=== PATIENT | male | born 1950 | race Caucasian/White ===

== ENCOUNTER 2017-10-06 06:22 | Inpatient (IN) | payer MEDICARE ==
[~2017-10-06] VITALS: Ht 190.5 cm; Wt 158.0 kg
[2017-10-06] VITALS (15 sets, daily range): BP systolic 143–184; BP diastolic 71–104; PULSE 70–91; RESP 20–21; TEMP 99; O2SAT 93–100
[~2017-10-06 06:22] MED LIST: D 50CAP2 PO; LUPR7.5I2 IM; WARF-22 PO
[2017-10-06] MEDS ORDERED: PROTAMINE SULFATE 50 MG/5 ML VIAL ONE ×2 (06:38→08:49)
[2017-10-06] MEDS ORDERED: VANCOMYCIN HCL 1000 MG VIAL ONE (06:38)
[2017-10-06] MEDS ORDERED: HEPARIN SODIUM - IV 10,000 UNITS/10 ML VIAL ONE ×2 (06:38→08:49)
[2017-10-06] MEDS ORDERED: HEPARIN-NS/PF INJ 500 ML ONE (06:39)
[2017-10-06] MEDS ORDERED: THROMBIN (TOPICAL) 20,000 UNIT SPRAY KIT ONE (06:39)
--- NOTE | 2017-10-06 07:15 | HHI.HP ---
History of Present Illness Chief Complaint: AAA History of Present Illness 66 yo male with asymptomatic AAA, presents for elective repair. In usual state of health - no new symptoms that would preclude surgery. Past/Family/Social History Past Medical History HTN OA prostate CA AAA Past Surgical History IVCF ankle surgery tonsillectomy Social History former smoker Family History NC Home Medications Reported Medications Leuprolide (Monthly) Inj Kit (Lupron Depot Inj Kit) 7.5 Mg Kit, 7.5 MG IM Q28D, KIT 0 Refills 10/05/17 Cholecalciferol (D3 Maximum Strength) 5,000 Unit Cap, 5000 UNITS PO DAILY for Nutritional Supplement, #30 CAP 0 Refills 10/05/17 Warfarin (Warfarin) 10 Mg Tab, 10 MG PO DAILY for Blood Clot Prevention, #30 TAB 0 Refills 10/05/17 Coded Allergies: penicillin G (Verified Allergy, Severe, 10/05/17) Review of Systems Constitutional: DENIES: Diaphoretic episodes, Fatigue, Fever, Weight gain, Weight loss, Chills, Dizziness, Change in appetite, Night Sweats Cardiovascular: DENIES: Chest pain, Palpitations, Syncope, Dyspnea on Exertion , PND, Lower Extremity Edema, Orthopnea, Claudication Physical Exam Neuro: alert, oriented, no distress HEENT: NC/AT Neck: no JVD Heart: reg rate, no M Lungs: clear B Abdomen: obese, NT Extremities: no groin rashes pending CTA (FRANKS) reviewed Caprini VTE Risk Assessment Caprini VTE Risk Assessment: No/Low Risk (score <= 1) Caprini Risk Assessment Model Point Value = 1 Point Value = 2 Point Value = 3 Point Value = 5 Age 41-60 Minor surgery BMI > 25 kg/m2 Swollen legs Varicose veins or History of unexplained or recurrent spontaneous Oral contraceptives or hormone replacement Sepsis (< 1 month) Serious lung disease, including pneumonia (< 1 month) Abnormal pulmonary function Acute myocardial infarction Congestive heart failure (< 1 month) History of inflammatory bowel disease Medical patient at bed rest Age 61-74 Arthroscopic surgery Major open surgery (> 45 min) Laparoscopic surgery (> 45 min) Malignancy Confined to bed (> 72 hours) Immobilizing plaster cast Central venous access Age >= 75 History of VTE Family history of VTE Factor V Leiden Prothrombin [id number] Lupus anticoagulant Anticardiolipin antibodies Elevated serum homocysteine Heparin-induced thrombocytopenia Other congenital or acquired thrombophilia Stroke (< 1 month) Elective arthroplasty Hip, pelvis, or leg fracture Acute spinal cord injury (< 1 month) Prophylaxis Regimen Total Risk Factor Score Risk Level Prophylaxis Regimen 0-1 Low Early ambulation 2 Moderate Order ONE of the following: *Sequential Compression Device (SCD) *Heparin 5000 units SQ BID 3-4 Higher Order ONE of the following medications: *Heparin 5000 units SQ TID *Enoxaparin/Lovenox 40 mg SQ daily (WT < 150 kg, CrCl > 30 mL/min) *Enoxaparin/Lovenox 30 mg SQ daily (WT < 150 kg, CrCl > 10-29 mL/min) *Enoxaparin/Lovenox 30 mg SQ BID (WT < 150 kg, CrCl > 30 mL/min) AND/OR *Sequential Compression Device (SCD) 5 or more Highest Order ONE of the following medications: *Heparin 5000 units SQ TID (Preferred with Epidurals) *Enoxaparin/Lovenox 40 mg SQ daily (WT < 150 kg, CrCl > 30 mL/min) *Enoxaparin/Lovenox 30 mg SQ daily (WT < 150 kg, CrCl > 10-29 mL/min) *Enoxaparin/Lovenox 30 mg SQ BID (WT < 150 kg, CrCl > 30 mL/min) AND *Sequential Compression Device (SCD) Assessment and Plan Plan To OR for elective EVAR Discussed with patient and . Discharge Planning PACU then CPCU Anticipate d/c tomorrow (POD#1) : [phone] Pedro Jorge MD Oct 06, 2017 07:15
[2017-10-06] MEDS ORDERED: SODIUM CHLORID 0.9% 500 ML IV PRN (07:45)
[2017-10-06] MEDS ORDERED: POVIDONE IODINE 5% (ANTISEPSIS KIT) 4 APPLICATIONS EACH NARE PRN (07:45)
[2017-10-06] MEDS ORDERED: METOPROLOL TARTRATE 25 MG TAB PO PRN (07:45)
[2017-10-06] MEDS ORDERED: CHLORHEXIDINE GLUCONATE 2 % 1 PACK (2 CLOTHS) TOPICAL PRN (07:45)
[2017-10-06] MEDS ORDERED: LACTATED RINGER'S 1000 ML IV PRN (07:45)
[2017-10-06 07:48] LABS: AUTOMATED NEUTROPHIL # 5.4 TH/MM3 (1.8-7.7); BASOPHIL # 0.1 TH/MM3 (0-0.2); BASOPHIL % 1.3 % (0.0-2.0); EOSINOPHIL # 0.3 TH/MM3 (0-0.4); EOSINOPHIL % 3.7 % (0.0-4.0); HEMATOCRIT 44.4 % (39.0-51.0); HEMOGLOBIN 14.9 GM/DL (13.0-17.0); LYMPH % 21.1 % (9.0-44.0); LYMPHOCYTE # 1.8 TH/MM3 (1.0-4.8); MEAN CELL VOLUME 87.8 FL (80.0-100.0); MEAN CORPUSCULAR HEMOGLOBIN 29.6 PG (27.0-34.0); MEAN CORPUSCULAR HGB CONC 33.7 % (32.0-36.0); MEAN PLATELET VOLUME 8.4 FL (7.0-11.0); MONO % 9.9 % (0.0-8.0); MONOCYTE # 0.8 TH/MM3 (0-0.9); PLATELET COUNT 197 TH/MM3 (150-450); RED BLOOD COUNT 5.06 MIL/MM3 (4.50-5.90); RED CELL DISTRIBUTION WIDTH 14.9 % (11.6-17.2); WHITE BLOOD COUNT 8.4 TH/MM3 (4.0-11.0)
[2017-10-06 08:00] LABS: INTERNATIONAL NORMALIZED RATIO 1.1 RATIO; PROTHROMBIN TIME - PATIENT 11.3 SEC (9.8-11.6)
[2017-10-06 08:12] LABS: BICARBONATE 24.3 MEQ/L (21.0-32.0); CALCIUM 8.5 MG/DL (8.5-10.1); CREATININE 0.85 MG/DL (0.60-1.30)
[2017-10-06] MEDS ORDERED: IOHEXOL 300 INJ 50 ML IV ONE (08:58)
--- NOTE | 2017-10-06 10:16 | HHI.PR ---
cc: Pedro Jorge MD Immediate Post Op Note Procedure Date: Oct 06, 2017 Pre Op Diagnosis: AAA Post Op Diagnosis: AAA Surgeon: Pedro Jorge Mechanical Oxidizer(s): none Procedure: 1. EVAR 2. B AUTO BODY WORKER Perclose Findings: successful EVAR, no endoleak at completion Additional Information: + Doppler signals in feet at end of case Complications: none Specimen(s) removed: none Estimated blood loss: 100mL Anesthesia: General Drains: None Fluids: 2100mL Urinary Output (mLs): 300 Patient to: PACU Patient Condition: Good Implant/Devices: SEE IMPLANT LOG (if applicable) Date/Time of Procedure: SEE SURGICAL CARE RECORD Pedro Jorge MD Oct 06, 2017 10:16
[2017-10-06] MEDS ORDERED: LACTULOSE SYRUP 20 GM/30 ML CUP PO PRN (10:30)
[2017-10-06] MEDS ORDERED: BISACODYL 10 MG SUPP RECTAL PRN (10:30)
[2017-10-06] MEDS ORDERED: SENNOSIDES 8.6 MG TAB PO PRN (10:30)
[2017-10-06] MEDS ORDERED: MAGNESIUM HYDROXIDE SUSP 30 ML CUP PO PRN (10:30)
[2017-10-06] MEDS ORDERED: *morphine SULFATE 4 MG/ML PERIprocedure ONLY ONE ×2 (10:42→10:45)
[2017-10-06] MEDS ORDERED: MIDAZOLAM HCL 2 MG/2 ML VIAL ONE (10:43)
[2017-10-06] MEDS ORDERED: PHENYLEPHRINE HCL 10 MG/ML VIAL IV ONE (11:59)
[2017-10-06] MEDS ORDERED: ONDANSETRON HCL 4 MG/2 ML VIAL IV PUSH ONE (11:59)
[2017-10-06] MEDS ORDERED: ROCURONIUM INJ 50 MG/5 ML SYRINGE IV PUSH ONE (11:59)
[2017-10-06] MEDS ORDERED: SODIUM CHLOR 0.9% 250 ML INJ 250 ML IV ONE (11:59)
[2017-10-06] MEDS ORDERED: NEOSTIGMINE 5 MG/5 ML SYRINGE IV PUSH ONE (11:59)
[2017-10-06] MEDS ORDERED: PHENYLEPH/NS 1000 MCG/10 ML SYR IV ONE (11:59)
[2017-10-06] MEDS ORDERED: SODIUM CHLORIDE 0.9% 10 ML VIAL IV ONE (11:59)
[2017-10-06] MEDS ORDERED: PROPOFOL 200 MG/20 ML AMP IV ONE (11:59)
[2017-10-06] MEDS ORDERED: ESMOLOL HCL 100 MG/10 ML VIAL IV ONE (11:59)
[2017-10-06] MEDS ORDERED: GLYCOPYRROLATE 1 MG/5 ML SYRINGE IV PUSH ONE (11:59)
[2017-10-06] MEDS ORDERED: SODIUM CHLORID 0.9% 500 ML INJ 500 ML IV ONE (11:59)
[2017-10-06] MEDS ORDERED: LIDOCAINE HCL 1% PF 5 ML SYRINGE OTHER ONE (11:59)
[2017-10-06] MEDS ORDERED: NORMOSOL R INJ 1,000 ML IV ONE (11:59)
[2017-10-06] MEDS: HYDROmorphone HCL 2 MG TAB PO PRN ×2 (13:53→19:06)
--- NOTE | 2017-10-06 17:42 | EKG ---
Date Performed: 10/06/2017 Time Performed: 07:19:12 PTAGE: 66 years EKG: Sinus rhythm WITH OCCASIONAL VENTRICULAR PREMATURE COMPLEXES WITH FREQUENT SUPRAVENTRICULAR PREMATURE COMPLEXES I N A BIGEMINAL PATTERN MARKED LEFT AXIS DEVIATION POSSIBLE INFERIOR MYOCARDIAL INFARCTION , OF INDETER MINATE AGE WITH POSTERIOR EXTENSION ABNORMAL ECG NO PREVIOUS TRACING DOCTOR: Palmira Lucio Interpretating Date/Time 10/06/2017 17:40:44
[2017-10-06] MEDS: DOCUSATE SODIUM 50 MG/SENNA 8.6 MG TAB PO SCH (20:14)
[2017-10-06] MEDS: FAMOTIDINE 20 MG TAB PO SCH (20:14)
[2017-10-06] MEDS: hydrALAZINE HCL 25 MG TAB PO PRN (20:14)
[2017-10-06] MEDS ORDERED: ATORVASTATIN 40 MG TAB PO SCH (21:00)
[2017-10-07] VITALS (12 sets, daily range): BP systolic 148–199; BP diastolic 78–95; PULSE 81–108; RESP 20–22; TEMP 98.6–100; O2SAT 93–97
[2017-10-07] MEDS: hydrALAZINE HCL 25 MG TAB PO PRN ×2 (04:34→09:43)
[2017-10-07 04:42] LABS: HEMATOCRIT 42.8 % (39.0-51.0); HEMOGLOBIN 14.2 GM/DL (13.0-17.0); MEAN CORPUSCULAR HEMOGLOBIN 29.2 PG (27.0-34.0); MEAN CORPUSCULAR HGB CONC 33.2 % (32.0-36.0); MEAN PLATELET VOLUME 8.9 FL (7.0-11.0); PLATELET COUNT 160 TH/MM3 (150-450); RED BLOOD COUNT 4.86 MIL/MM3 (4.50-5.90); RED CELL DISTRIBUTION WIDTH 15.2 % (11.6-17.2); WHITE BLOOD COUNT 13.2 TH/MM3 (4.0-11.0)
[2017-10-07 05:08] LABS: BICARBONATE 25.3 MEQ/L (21.0-32.0); CALCIUM 8.1 MG/DL (8.5-10.1); CREATININE 0.71 MG/DL (0.60-1.30)
--- NOTE | 2017-10-07 06:26 | MP ---
cc: Pedro Jorge MD DATE OF OPERATION: 10/06/2017 PREOPERATIVE DIAGNOSIS: Abdominal aortic aneurysm. POSTOPERATIVE DIAGNOSIS: Abdominal aortic aneurysm. PROCEDURES: 1. Endovascular exclusion of abdominal aortic aneurysm using a bifurcated device. 2. Right common femoral artery Perclose for a 16-Andorran sheath. 3. Left common femoral artery Perclose for a 22-Andorran sheath. ATTENDING SURGEON: Pedro Jorge MD MOTOR VEHICLE SALESPERSON SURGEON: None. ANESTHESIA: General. INDICATIONS: Mr. Barney is a 66-year-old gentleman with a 5.5 cm abdominal aortic aneurysm that appears amenable to endovascular repair. He is taken to the operating room for elective repair. DESCRIPTION OF PROCEDURE: Informed consent was obtained from the patient. He was taken to the operating room and placed supine on the operating room table. An appropriate timeout was taken to ensure the patient's identity, operative site, and planned procedure. The administration of 1 g vancomycin was initiated prior skin incision and will be discontinued after single preoperative dose. Vancomycin was chosen because of the patient's PENICILLIN ALLERGY. Everyone in the room agreed with the timeout and we proceeded. He was prepped from his nipples to his knees. A 21-gauge micropuncture needle was used to access both common femoral arteries. This was exchanged using Seldinger technique for a micropuncture sheath through which 0.035 Storq wires were introduced. The micropuncture sheath was exchanged for a 5-Andorran sheath. These were used to dilate the skin and subcutaneous tract and arteriotomy, and then 2 Perclose ProGlide sutures were inserted into each common femoral artery and not tied down but will be used later. Two 8-Andorran 25 cm sheaths were then introduced. At this point, the patient was systemically heparinized with 15,000 units of intravenous heparin. The ACT was confirmed to be greater than 250. Through the left-hand side, the Storq wire was advanced to the proximal descending thoracic aorta and exchanged for a Lunderquist wire, and over the right-hand side, the Storq was exchanged for a marker flush straight catheter. The 8-Andorran sheath on the left was removed and Rose dilators used to dilate the skin and subcutaneous tract and arteriotomy until the main device, which was a Cook Zenith 3.0 x 96 which went through a 22-Andorran sheath, was introduced in the left-hand side. It was oriented appropriately. An angiogram was performed to locate the renal arteries, and the main device was deployed down to the contralateral gate. Interval angiography was performed to locate the renal arteries, and the top cap was deployed without difficulty. A Roadrunner guidewire was then placed through the right marker flush catheter, and this was exchanged for a Cobra and we attempted to access the contralateral gate using the Roadrunner and Cobra, but this was unsuccessful, and ultimately a Glidewire was used to navigate into the contralateral gate and this was confirmed angiographically. A Lunderquist wire was placed. A marker flush catheter was then advanced over the Lunderquist wire. An angiogram was performed which located the right hypogastric artery. The right limb was then introduced after the 8-Andorran sheath was removed, and Rose dilator was used to dilate the skin, subcutaneous tract and arteriotomy, and ultimately a 16-Andorran sheath was introduced. The right limb was deployed down until the distal aspect of the limb was immediately proximal to the hypogastric artery; it was deployed without difficulty. The delivery system except for the 16-Andorran sheath was removed. The remainder of the main device was deployed. The top cap was recaptured and a flush marker catheter was placed on the left hand side and the angiogram was performed to locate the left hypogastric artery. The ipsilateral limb was then inserted and deployed until the distal aspect of the limb was immediately proximal to the hypogastric artery. The Coda balloon was used to balloon the proximal and distal ends as well as all junctions, and a completion angiogram showed excellent result without any type 1 or type 3 endoleak. The wire, catheter and sheath were removed and the Perclose were tied down over Storq wires. The Storq wires were removed. Hemostasis was achieved in the groins and there were good Doppler signals in the feet. ____ 4-0 Monocryls were then used to repair the skin puncture sites. The patient was extubated and transported to the recovery room in stable condition. I was present and scrubbed and performed the entire procedure. MD CAROLYN Dao/RICHARD , 05:03 AM , 06:24 AM
--- NOTE | 2017-10-07 07:40 | PD.VS.PN ---
Subjective POD #: 1 Procedure(s): EVAR Subjective/Hospital Course Looks good, sitting in chair, no new discomfort parveen po Objective Vitals/I&O Date Time Temp Pulse Resp B/P (MAP) Pulse Ox O2 Delivery O2 Flow Rate FiO2 10/07/17 06:20 99 10/07/17 05:02 97 10/07/17 04:47 94 10/07/17 04:46 100.0 85 189/89 (122) 97 10/07/17 03:41 86 10/07/17 02:38 95 10/07/17 01:05 97 Nasal Cannula 3.00 Bi-Pap 10/07/17 01:02 98.8 91 199/95 (129) 96 10/07/17 01:02 81 10/06/17 23:00 91 10/06/17 22:23 84 10/06/17 20:34 100 30 10/06/17 20:30 80 10/06/17 20:13 12 10/06/17 19:00 97 Nasal Cannula 3.00 Bi-Pap 10/06/17 19:00 99.0 84 184/104 (130) 97 10/06/17 19:00 84 10/06/17 18:24 99 30 10/06/17 18:17 19 10/06/17 18:00 80 10/06/17 17:00 85 10/06/17 16:00 78 10/06/17 15:00 78 10/06/17 15:00 79 20 143/71 (95) 98 10/06/17 14:00 90 10/06/17 13:13 89 168/99 (122) 97 10/06/17 13:00 78 10/06/17 12:00 83 10/06/17 11:29 70 10/06/17 11:29 72 21 151/74 (99) 93 10/06/17 11:15 83 16 163/74 (103) 92 Nasal Cannula 4 10/06/17 11:00 83 16 156/80 (105) 92 Nasal Cannula 4 10/06/17 10:45 83 16 153/71 (98) 92 Nasal Cannula 4 10/06/17 10:34 97.7 86 16 163/74 (103) 91 Nasal Cannula 4 10/06/17 07:53 98.2 79 16 94 10/07/17 10/07/17 10/07/17 07:00 15:00 23:00 Intake Total 360 ml Output Total 1100 ml Balance -740 ml Exam: B groins soft, no ecchymoses feet warm and motor intact Laboratory Laboratory Tests Test 10/07/17 04:02 10/07/17 04:08 White Blood Count 13.2 Red Blood Count 4.86 Hemoglobin 14.2 Hematocrit 42.8 Mean Corpuscular Volume 88.0 Mean Corpuscular Hemoglobin 29.2 Mean Corpuscular Hemoglobin Concent 33.2 Red Cell Distribution Width 15.2 Platelet Count 160 Mean Platelet Volume 8.9 Blood Urea Nitrogen 13 Creatinine 0.71 Random Glucose 122 Calcium Level 8.1 Sodium Level 138 Potassium Level 3.9 Chloride Level 105 Carbon Dioxide Level 25.3 Anion Gap 8 Estimat Glomerular Filtration Rate 110 Assessment and Plan Plan POD#1 s/p Percutaneous EVAR Looks good, parveen po and voided since Freed out 1. D/C today 2. Lovenox to coumadin 3. f/u 1m with CTA A/P Discharge Planning d/c today : [phone] Pedro Jorge MD Oct 07, 2017 07:40
[2017-10-07] MEDS ORDERED: OXYC1CAP PO (08:28)
[2017-10-07] MEDS ORDERED: ENOX150P SQ (08:37)
--- NOTE | 2017-10-07 08:41 | PD.VS.DC ---
Discharge Summary Admission Date: Oct 06, 2017 at 06:22 Discharge Date: Oct 07, 2017 Admission Diagnosis: (1) AAA (abdominal aortic aneurysm) without rupture Discharge Diagnosis: (1) History of repair of aneurysm of abdominal aorta using endovascular stent graft ICD Codes: Z95.828 - Presence of other vascular implants and grafts (2) AAA (abdominal aortic aneurysm) without rupture ICD Codes: I71.4 - Abdominal aortic aneurysm, without rupture Brief History from admission 66 yo male with asymptomatic AAA, presents for elective repair. In usual state of health - no new symptoms that would preclude surgery. Procedure(s): EVAR Significant Findings B groins soft, no ecchymoses feet warm and motor intact Lungs clear RRR Laboratory Tests Test 10/06/17 07:35 10/07/17 04:02 10/07/17 04:08 Monocytes (%) (Auto) 9.9 % (0.0-8.0) Random Glucose 110 MG/DL (74-106) 122 MG/DL (74-106) White Blood Count 13.2 TH/MM3 (4.0-11.0) Calcium Level 8.1 MG/DL (8.5-10.1) Hospital Course: 66 yo male with asymptomatic AAA, presents for elective repair. Pt s/p EVAR POD #: 1 Looks great, told po pain controlled has already ambulated Groins soft Pt w/o abdominal/back pain Pt clear for d/c Arranged out pt f/u Checked E- [place]- Prescribed 3 day supply of post operative pain medication Allergies Coded Allergies Type Severity Reaction Last Updated Verified penicillin G Allergy Severe 10/06/17 Yes 10/05/17 10/05/17 10/06/17 10/06/17 10/07/17 10/07/17 06:00 18:00 06:00 18:00 06:00 18:00 Intake Total 2340 ml 360 ml Output Total 1650 ml 1100 ml Balance 690 ml -740 ml Intake Oral 240 ml 360 ml Other 2100 ml Output Urine Total 1550 ml 1100 ml Estimated Blood Loss 100 ml Laboratory Tests Test 10/06/17 07:35 10/07/17 04:02 10/07/17 04:08 White Blood Count 8.4 TH/MM3 13.2 TH/MM3 Red Blood Count 5.06 MIL/MM3 4.86 MIL/MM3 Hemoglobin 14.9 GM/DL 14.2 GM/DL Hematocrit 44.4 % 42.8 % Mean Corpuscular Volume 87.8 FL 88.0 FL Mean Corpuscular Hemoglobin 29.6 PG 29.2 PG Mean Corpuscular Hemoglobin Concent 33.7 % 33.2 % Red Cell Distribution Width 14.9 % 15.2 % Platelet Count 197 TH/MM3 160 TH/MM3 Mean Platelet Volume 8.4 FL 8.9 FL Neutrophils (%) (Auto) 64.0 % Lymphocytes (%) (Auto) 21.1 % Monocytes (%) (Auto) 9.9 % Eosinophils (%) (Auto) 3.7 % Basophils (%) (Auto) 1.3 % Neutrophils # (Auto) 5.4 TH/MM3 Lymphocytes # (Auto) 1.8 TH/MM3 Monocytes # (Auto) 0.8 TH/MM3 Eosinophils # (Auto) 0.3 TH/MM3 Basophils # (Auto) 0.1 TH/MM3 CBC Comment DIFF FINAL Differential Comment Prothrombin Time 11.3 SEC Prothromb Time International Ratio 1.1 RATIO Blood Urea Nitrogen 16 MG/DL 13 MG/DL Creatinine 0.85 MG/DL 0.71 MG/DL Random Glucose 110 MG/DL 122 MG/DL Calcium Level 8.5 MG/DL 8.1 MG/DL Sodium Level 140 MEQ/L 138 MEQ/L Potassium Level 3.8 MEQ/L 3.9 MEQ/L Chloride Level 107 MEQ/L 105 MEQ/L Carbon Dioxide Level 24.3 MEQ/L 25.3 MEQ/L Anion Gap 9 MEQ/L 8 MEQ/L Estimat Glomerular Filtration Rate 90 ML/MIN 110 ML/MIN Orders Procedure Category Date Status Time Protamine Sulfate Inj MED 10/06/17 Complete (Protamine Sulfate 06:38 Heparin Inj (Heparin MED 10/06/17 Complete Inj) 06:38 Vancomycin Inj MED 10/06/17 Complete (Vancomycin Inj) 06:38 Thrombin Top [place] MED 10/06/17 Complete (Thrombin Top [place]) 06:39 Heparin-Ns/Pf Inj MED 10/06/17 Complete (Heparin-Ns/Pf Inj) 06:39 Complete Blood Count LAB 10/06/17 Complete With Diff 07:01 Basic Metabolic Panel LAB 10/06/17 Complete (Bmp) 07:01 Type And Screen BBK 10/06/17 Complete 07:01 Prothrombin Time / LAB 10/06/17 Complete Inr (Pt) 07:01 Electrocardiogram CAV 10/06/17 Resulted 07:01 Lactated Ringer's MED 10/06/17 In Process 1000 Ml Inj (Lr 1000 M 07:45 Sodium Chlorid 0.9% MED 10/06/17 In Process 500 Ml Inj (Ns 500 M 07:45 Metoprolol Tartrate MED 10/06/17 In Process (Lopressor) 07:45 Povidone Iod 5% MED 10/06/17 In Process Antisepsis Kit 07:45 Chlorhexidine 2% MED 10/06/17 In Process Cloth (Chlorhexidine 07:45 Endovascular Cath CATH 10/06/17 Logged Protamine Sulfate Inj MED 10/06/17 Complete (Protamine Sulfate 08:49 Heparin Inj (Heparin MED 10/06/17 Complete Inj) 08:49 Iohexol 300 Inj MED 10/06/17 Complete (Omnipaque 300 Inj) 08:58 Urinary Catheter JIM 10/06/17 In Process Management 08:27 Admit To Inpatient ADMITTING 10/06/17 Transmitted Code Status CODE 10/06/17 Transmitted 10:16 Vital Signs (Adult) JIM 10/06/17 In Process 10:16 Production Utility Worker / JIM 10/06/17 In Process Telemetry 10:16 Activity Oob Ad Barbara JIM 10/07/17 In Process 08:00 Activity Bed Rest JIM 10/06/17 In Process 10:16 Notify Parameters JIM 10/06/17 In Process 10:16 Precautions JIM 10/06/17 In Process 10:16 Diet Heart Healthy DIET 10/06/17 Transmitted Lunch Basic Metabolic Panel LAB 10/07/17 Complete (Bmp) 06:00 Cbc No Diff, Includes LAB 10/07/17 Complete Plts 06:00 Oxycodone (Roxicodone) MED 10/06/17 In Process 10:30 Hydromorphone MED 10/06/17 In Process (Dilaudid) 10:30 Scd Bilateral/Knee JIM 10/06/17 In Process High 10:16 Docusate Sodium-Senna MED 10/06/17 In Process ([place]-Colace) 21:00 Magnesium Hydroxide MED 10/06/17 In Process Liq (Milk Of Magnesi 10:30 Sennosides (Senokot) MED 10/06/17 In Process 10:30 Bisacodyl Supp MED 10/06/17 In Process (Dulcolax Supp) 10:30 Lactulose Liq MED 10/06/17 In Process (Lactulose Liq) 10:30 Inpatient ADMITTING 10/06/17 Transmitted Certification Remove Urinary JIM 10/07/17 In Process Catheter 06:00 Aspirin Chew (Aspirin MED 10/07/17 In Process Chew) 09:00 Famotidine (Pepcid) MED 10/06/17 In Process 21:00 Atorvastatin (Lipitor) MED 10/06/17 In Process 21:00 *Morphine Inj MED 10/06/17 Complete (*Morphine Inj 10:42 Midazolam Inj (Versed MED 10/06/17 Complete Inj) 10:43 Fentanyl Inj MED 10/06/17 Complete (Fentanyl Inj) 10:44 *Morphine Inj MED 10/06/17 Complete (*Morphine Inj 10:45 Enoxaparin Inj MED 10/07/17 In Process (Lovenox Inj) 10:00 Class Iv Pacu Ea 30 [facility] 10/06/17 Complete MIN General/Pacu [facility] 10/06/17 Complete Post Anesthesia Oxygen [facility] 10/06/17 Complete Resp Bipap / Cpap Non RSP 10/06/17 Logged Invas Vt Am Admit Pre Op Care KIT [facility] 10/06/17 Complete Pad, K-Thermia, Large [facility] 10/06/17 Logged 15x22 Ea 15:29 Equip, K-Thermia Use [facility] 10/06/17 Logged OF 15:29 Hydralazine MED 10/06/17 In Process (Apresoline) 17:15 Attending Discharge DISCHARGE 10/07/17 Transmitted Order Vital Signs Date Time Temp Pulse Resp B/P (MAP) Pulse Ox O2 Delivery O2 Flow Rate FiO2 10/07/17 08:00 106 10/07/17 07:00 108 10/07/17 06:20 99 10/07/17 05:02 97 10/07/17 04:47 94 10/07/17 04:46 100.0 85 189/89 (122) 97 10/07/17 03:41 86 10/07/17 02:38 95 6/22/18 01:05 97 Nasal Cannula 3.00 Bi-Pap 10/07/17 01:02 98.8 91 199/95 (129) 96 10/07/17 01:02 81 10/06/17 23:00 91 10/06/17 22:23 84 10/06/17 20:34 100 30 10/06/17 20:30 80 10/06/17 20:13 12 10/06/17 19:00 97 Nasal Cannula 3.00 Bi-Pap 10/06/17 19:00 99.0 84 184/104 (130) 97 10/06/17 19:00 84 10/06/17 18:24 99 30 10/06/17 18:17 19 10/06/17 18:00 80 10/06/17 17:00 85 10/06/17 16:00 78 10/06/17 15:00 78 10/06/17 15:00 79 20 143/71 (95) 98 10/06/17 14:00 90 10/06/17 13:13 89 168/99 (122) 97 10/06/17 13:00 78 10/06/17 12:00 83 10/06/17 11:29 70 10/06/17 11:29 72 21 151/74 (99) 93 10/06/17 11:15 83 16 163/74 (103) 92 Nasal Cannula 4 10/06/17 11:00 83 16 156/80 (105) 92 Nasal Cannula 4 10/06/17 10:45 83 16 153/71 (98) 92 Nasal Cannula 4 10/06/17 10:34 97.7 86 16 163/74 (103) 91 Nasal Cannula 4 10/06/17 07:53 98.2 79 16 94 Discharge Condition: Good Discharge Disposition: Discharge Home Discharge Instructions: DIET You may resume your heart healthy diet ACTIVITY Activity as tolerated You may shower then pat dry incision sites No tub baths or swimming until your incision is fully healed WOUND CARE Leave open to air Call the office ([phone]) to report any new onset increased redness, drainage, swelling or pain Do not apply any creams or ointments to your incisions as it may loosen the surgical glue MEDICATIONS You may resume your daily home medications - Hold Coumadin for 2 days You were prescribed Lovenox injections for anticoagulation- Take as prescribed You may resume your Coumadin in 2 days You were prescribed a narcotic pain medication that may cause constipation- Take with an over the counter stool softener You were prescribed a narcotic pain medication that may cause drowsiness- No driving while taking this medication Any questions or concerns: Call [facility] at [facility] [phone] Karma Long Oct 07, 2017 08:41
[2017-10-07] MEDS ORDERED: ASPIRIN 81 MG CHEW TAB PO SCH (09:00)
[2017-10-07] MEDS: DOCUSATE SODIUM 50 MG/SENNA 8.6 MG TAB PO SCH (09:43)
[2017-10-07] MEDS: FAMOTIDINE 20 MG TAB PO SCH (09:44)
[2017-10-07] MEDS ORDERED: ENOXAPARIN SODIUM 40 MG/0.4 ML SYRINGE SQ SCH (10:00)
== END 2017-10-07 12:00 | disposition home or self-care (01) | DRG 269 ==
LOC: HSDI 06:22 → HCPC 11:25
PROVIDERS: ADMIT Surgery; ATTEND Surgery
PROC: 04V03D6 (ICD-10-PCS; principal; 2017-10-07)
DX: I71.4 Abdominal aortic aneurysm, without rupture (principal); Z68.41 Body mass index [BMI] 40.0-44.9, adult; I10 Essential (primary) hypertension; E11.9 Type 2 diabetes mellitus without complications; Z85.46 Personal history of malignant neoplasm of prostate; Z87.891 Personal history of nicotine dependence
CPT/HCPCS: 75630; 80048; 85025; 85027; 85610; 86850; 86900; 86901; 93005; 94002; C1725; C1769; C1874; J1644; J1650; J2250; J2270; J2370; J2405; J2710; J2720; J3010; J3370; J7040; J7050; J7120; Q9967